=== PATIENT | female | born 1970 | race American Indian/Alaskan Native ===

== ENCOUNTER 2020-06-04 06:42 | Day surgery (SDC) | payer BC ==
--- NOTE | 2020-06-04 07:44 | Anesthesia Consultation ---
Anesthesia Consult and Med Hx Date of service: 06/04/20 - Airway Anesthetic Teeth Evaluation: Bridges ROM Head & Neck: Adequate Mental/Hyoid Distance: Adequate Mallampati Class: Class II Intubation Access Assessment: Probably Good - Pre-Operative Health Status ASA Pre-Surgery Classification: ASA2 Proposed Anesthetic Plan: MAC - Pulmonary Hx Smoking: No Hx Asthma: No Hx Respiratory Symptoms: No SOB: No COPD: No Home Oxygen Therapy: No Hx Pneumonia: No Hx Sleep Apnea: No - Cardiovascular System Hx Hypertension: Yes Hx Coronary Artery Disease: No Hx Heart Attack/AMI: No Hx Angina: Yes Hx Percutaneous Transluminal Coronary Angioplasty (PTCA): No Hx Cardia Arrhythmia: No Hx Pacemaker: No Hx Internal Defibrillator: No Hx Valvular Heart Disease: No Hx Heart Murmur: No Hx Peripheral Vascular Disease: No - Central Nervous System Hx Neuromuscular Disorder: No Hx Seizures: No CVA: No Hx Back Pain: No Hx Psychiatric Problems: No - Gastrointestinal Hx Ulcer: No Hx Gastroesophageal Reflux Disease: No - Endocrine Hx Renal Disease: No Hx End Stage Renal Disease: No Hx Cirrhosis: No Hx Liver Disease: No Hx Insulin Dependent Diabetes: No Hx Non-Insulin Dependent Diabetes: No Hx Thyroid Disease: No Hx Hypothyroidism: No Hx Hyperthyroidism: No - Hematic Hx Anemia: No Hx Sickle Cell Disease: No - Other Systems Hx Alcohol Use: No (occ.) Hx Substance Use: No Hx Cancer: No Hx Obesity: No
--- NOTE | 2020-06-04 07:47 | Anesthesia Day of Surgery ---
Anesthesia Day of Surgery - Day of Surgery Patient Examined: Yes Patient H&P Reviewed: Yes Patient is NPO: Yes
[2020-06-04] MEDS ORDERED: SODIUM CHLORIDE 0.45% 1000 ML 1,000 ML IV ONE (08:01)
[2020-06-04] MEDS ORDERED: SODIUM CHLORIDE 0.9% 1000 ML 1,000 ML ONE (08:02)
[2020-06-04] MEDS ORDERED: propofoL 200 MG/20 ML VIAL IV ONE ×5 (08:27→13:09)
[2020-06-04] MEDS ORDERED: LIDOCAINE MPF (2%) 20 MG/1 ML VIAL 5 ML ONE (08:29)
[2020-06-04] MEDS ORDERED: fentaNYL 100 MCG/2 ML INJ ONE (08:41)
[2020-06-04] MEDS ORDERED: SODIUM CHLORIDE 0.9% 1000 ML 1,000 ML IV SCH (11:00)
[2020-06-04 14:21] VITALS: BP 111/67
--- NOTE | 2020-06-04 15:56 | Procedure Note ---
Date of procedure: 06/04/20 Pre-op diagnosis: Screening colonoscopy Post-op diagnosis: same Procedure: Screening colonoscopy Description of procedure: Pt was placed left side down. Pt was sedated intravenously by anesthesia. Colonoscope was inserted into the pt's rectum and was advanced retrograde while directly visualizing the colonic lumen. The prep was adequate. Once the cecum was identified, the scope was slowly withdrawn with careful circumferential visualization of the colonic mucosa. The examination included a retroflexed view of the distal rectum. No tumors, polyps, diverticula, AVM's or mucosal ulcerations were noted. In short, the exam was unremarkable. Insufflated air was aspirated from the rectum and the scope withdrawn. Pt tolerated the procedure well. Pt was recovered in the GI recovery room. Findings: Normal colonoscopy to the cecum Anesthesia: MAC Surgeon: KORTNEY CASON Estimated blood loss: none Pathology: none Condition: stable Disposition: same day
--- NOTE | 2020-06-04 16:50 | Post Anesthesia Evaluation ---
- Post Anesthesia Evaluation Patient Participated: Yes Airway Patent: Yes Stable Respiratory Function: Yes Nausea/Vomiting: No Temp > 96.8F: Yes Pain Manageable: Yes Adequeate Hydration: Yes Anesthesia Complications: No
== END 2020-06-04 06:43 | disposition home or self-care (01) ==
LOC: GIO 06:42
PROVIDERS: ATTEND Surgery
DX: Z12.11 Encounter for screening for malignant neoplasm of colon (principal); I20.8 Other forms of angina pectoris; I10 Essential (primary) hypertension; Z98.890 Other specified postprocedural states; Z79.899 Other long term (current) drug therapy
CPT/HCPCS: 45378; J2704; J7030; J3010